=== PATIENT | female | born 1940 | race Caucasian/White ===

== ENCOUNTER 2016-08-31 08:03 | Day surgery (SDC) | payer OTHER ==
[~2016-08-31] VITALS: Ht 172.7 cm; Wt 87.3 kg
[~2016-08-31 08:03] MED LIST: AMLO5 PO; ASPI81 PO; BENA25TA8 PO; LEVO.125 PO; LOVA20TA PO; METO25 PO; SERT-132 PO
[2016-08-31] MEDS ORDERED: ASPIRIN 81 MG CHEW TAB ONE (08:36)
[2016-08-31 08:57] VITALS: BP 138/69; PULSE 57; RESP 18; TEMP 98; O2SAT 97
[2016-08-31] MEDS ORDERED: ISOS30TA3 PO (09:11)
[2016-08-31] MEDS ORDERED: ERGO1CAP10 PO (09:11)
[2016-08-31] MEDS ORDERED: METO25TA3 PO (09:11)
[2016-08-31] MEDS ORDERED: AMLO5TAB2 PO (09:11)
[2016-08-31] MEDS ORDERED: ATOR40TA16 PO (09:11)
[2016-08-31] MEDS ORDERED: LEVO75TA3 PO (09:11)
[2016-08-31] MEDS ORDERED: ASPI1TAB69 PO (09:11)
[2016-08-31] MEDS ORDERED: BENA25TA3 PO (09:11)
[2016-08-31] MEDS ORDERED: ALPR0.25 PO (09:11)
[2016-08-31] MEDS ORDERED: SERT-129 PO (09:11)
[2016-08-31 09:31] LABS: AUTOMATED NEUTROPHIL # 2.3 TH/MM3 (1.8-7.7); BASOPHIL % 0.9 % (0.0-2.0); EOSINOPHIL # 0.3 TH/MM3 (0-0.4); EOSINOPHIL % 7.5 % (0.0-4.0); HEMO FLAGS DIFF FINAL; LYMPH % 29.5 % (9.0-44.0); LYMPHOCYTE # 1.3 TH/MM3 (1.0-4.8); MEAN CELL VOLUME 82.8 FL (80.0-100.0); MEAN CORPUSCULAR HEMOGLOBIN 27.5 PG (27.0-34.0); MEAN CORPUSCULAR HGB CONC 33.2 % (32.0-36.0); MONO % 9.8 % (0.0-8.0); NEUT % 52.3 % (16.0-70.0); PLATELET COUNT 207 TH/MM3 (150-450); RED CELL DISTRIBUTION WIDTH 15.2 % (11.6-17.2); WHITE BLOOD COUNT 4.4 TH/MM3 (4.0-11.0)
[2016-08-31 09:36] LABS: PROTHROMBIN TIME - PATIENT 11.1 SEC (9.8-11.6)
[2016-08-31] MEDS ORDERED: NS 1000P @30 MLS/HR (KVO) IV SCH (09:45)
[2016-08-31 09:52] LABS: POTASSIUM 3.9 MEQ/L (3.5-5.1)
--- NOTE | 2016-08-31 10:00 | EKG ---
Date Performed: 08/31/2016 Time Performed: 09:00:34 PTAGE: 76 years EKG: Sinus bradycardia with 1st degree A-V block Possible left anterior fascicular block Abnorma l ECG NO SIGNIFICANT CHANGE FROM PRIOR ELECTROCARDIOGRAM. PREVIOUS TRACING : 12/03/2014 17.28 DOCTOR: Mannie Guillory Interpretating Date/Time 08/31/2016 10:00:33
[2016-08-31] MEDS ORDERED: MIDAZOLAM HCL 2 MG/2 ML VIAL ONE (10:12)
[2016-08-31] MEDS ORDERED: HEPARIN-NS/PF INJ 500 ML ONE (10:12)
[2016-08-31] MEDS ORDERED: NITROGLYCERIN INJ 5 ML ONE (10:19)
[2016-08-31] MEDS ORDERED: VERAPAMIL HCL 5 MG/2 ML VIAL ONE (10:19)
[2016-08-31] MEDS ORDERED: HEPARIN SODIUM - IV 10,000 UNITS/10 ML VIAL ONE (10:19)
[2016-08-31] MEDS ORDERED: hydrALAZINE HCL 20 MG/ML VIAL ONE (11:05)
[2016-08-31] MEDS ORDERED: IOHEXOL 350 MG/ML 100 ML BTL (for Cath Lab) OTHER ONE (11:15)
[2016-08-31] MEDS ORDERED: SODIUM CHLORIDE 0.9% FLUSH 5 ML FLUSH IVF PRN (11:45)
[2016-08-31] MEDS ORDERED: ACETAMINOPHEN 325 MG TAB PO ONE (11:45)
[2016-08-31] MEDS ORDERED: MISC INFORMATION XX ONE (11:45)
--- NOTE | 2016-08-31 13:42 | MA ---
cc: JOSE RENO DO DATE: August 31, 2016 PROCEDURE Left heart catheterization, coronary angiography, angiography of bypass grafts. PREPROCEDURE DIAGNOSIS Chest pain, Bent anginal score of 3, abnormal stress test. POSTPROCEDURE DIAGNOSIS Coronary artery disease with a history of coronary artery bypass grafting. MEDICATIONS USED Versed 1/2 mg, fentanyl 25 mcg, verapamil 2.5 mg, Nitro 200 mcg, heparin 3500 units. ESTIMATED BLOOD LOSS 10 ccs. CONTRAST USED 75 ccs. FLUOROSCOPY 13.7 minutes. PROCEDURAL SUMMARY Jessie Duval is a pleasant 76-year-old female who has been noting chest pain and shortness of breath with mild exertion. Her complaint appears to be more shortness of breath than anything but due to the chest pain and shortness of breath she underwent nuclear stress testing which showed inferolateral area of ischemia. This was felt to be an intermediate cardiovascular risk. Due to this she was scheduled for cardiac catheterization. She understood the risks, benefits and alternatives before the case and signed consent as such. PROCEDURE She was brought back to the cardiac catheterization lab and prepped in the usual sterile fashion. Her left radial artery was accessed using a modified Seldinger technique and placement of a Terumo 5/6 Sinhala slender sheath. A JR-4 was advanced over a J-wire to the left subclavian artery. Selective angiography of the HEDRICK artery shows a patent HEDRICK with no significant disease touching down to the mid LAD and supplying both the mid LAD and diagonal with no significant disease throughout. A J-wire was then advanced through the JR-4 and this was taken down into the ascending root of the aorta. The JR-4 was then used for selective angiography of the lytton right coronary artery which shows diffuse 60% disease throughout with a 70% lesion distally and competitive flow distally. The JR-4 was then used to engage the SVG to PDA but it was felt that it was not well engaged and a multipurpose would most likely be better. The JR-4 was then used to engage an SVG to OM-1, OM-2 which shows a patent vein graft with good touchdown and no significant disease in the obtuse marginals. The JR-4 was then exchanged for a multipurpose and this was used to engage the SVG to the PDA. SVG showed no significant disease with good touchdown to the PDA and this retrogradely fills the RCA. The multipurpose was then removed and exchanged for a JL-4. Selective coronary angiography of the left coronary system shows a left main with minimal disease. Proximal LAD has 50% lesions and then 100% at the first septal desk top publisher. The left circumflex appears to have 100% after the first obtuse marginal with the first obtuse marginal showing competitive flow distally. The JL-4 was then removed over a J-wire. No aortovein graft bypasses are noted to the diagonal and it was felt that the diagonal was filled via the HERDICK to LAD and this may represent an error in the documentation of the patient's bypass surgery. Two markers were noted on the aorta coinciding with the SVG to PDA and SVG to first and second obtuse marginals. An angled pigtail was then used to cross the aortic valve and measurement of the left ventricular pressures with LVEDP of 26. The pigtail was then pulled back across the aortic valve showing no significant gradient of aortic stenosis. The pigtail was then removed over a J-wire. The left radial sheath was then removed and placement of a TR band with 10 ccs of air. The patient left the catheterization lab stable. IMPRESSION 1. Coronary artery disease with history of coronary artery bypass grafting including a HEDRICK to LAD and diagonal, SVG to OM1 OM2, SVG to PDA, which are all patent at this time. 2. Elevated LVEDP at 25. 3. Noted hypertension with an aortic pressure of 190/90 in the cardiac catheterization lab. RECOMMENDATIONS 1. Jessie appears to have no significant obstructive coronary artery disease at this time as all bypass grafts are open. 2. She was noted to have an elevated LVEDP along with hypertensive in the cardiac catheterization lab. This may be part of the cause of her chest pain and shortness of breath. Postprocedure her blood pressure was noted to be 147/78. If she notices anymore elevation of her blood pressure at home or while in the office, consideration could be made for increasing her Norvasc. 3. She will follow up with Dr. Guillory in the next 3-4 weeks. Thank you for allowing me to see Jessie Duval, if there are any questions please do not hesitate to call. Jose Reno DO VGP/TLL /12:36 PM /1:14 PM
[2016-08-31] MEDS ORDERED: SODIUM CHLORIDE 0.9% FLUSH 5 ML FLUSH IVF SCH (21:00)
== END 2016-08-31 16:51 | disposition home or self-care (01) ==
LOC: HDOC 08:03 → HDIC 08:05 → HDOC 16:51
PROVIDERS: ATTEND Nuclear Medicine Nuclear Cardiology
DX: I25.10 Atherosclerotic heart disease of native coronary artery without angina pectoris (principal); I10 Essential (primary) hypertension; E66.9 Obesity, unspecified; E78.5 Hyperlipidemia, unspecified; Z95.1 Presence of aortocoronary bypass graft
CPT/HCPCS: 80048; 85025; 85610; 85730; 93005; 93454; C1769; C1893; J0360; J1644; J2250; J3010; Q9967

== ENCOUNTER 2017-08-28 14:25 | Inpatient (IN) | payer OTHER, MEDICARE ==
[~2017-08-28] VITALS: Ht 175.3 cm; Wt 85.0 kg
[~2017-08-28 14:25] MED LIST changes: +ALPR0.25 PO; -AMLO5 PO; +AMLO5TAB2 PO; +ASPI1TAB69 PO; -ASPI81 PO; +ATOR40TA16 PO; +BENA25TA3 PO; -BENA25TA8 PO; +ERGO1CAP10 PO; +ISOS30TA3 PO; -LEVO.125 PO; +LEVO75TA3 PO; -LOVA20TA PO; -METO25 PO; +METO25TA3 PO; +SERT-129 PO; -SERT-132 PO
[2017-08-28] MEDS ORDERED: IOHEXOL 350 MG/ML 10 ML VIAL (for RAD DIAG) IVCONTRAST ONE (14:26)
[2017-08-28 14:28] VITALS: BP 157/103; PULSE 64; RESP 22; TEMP 98.7; O2SAT 97
[2017-08-28] MEDS ORDERED: ASPI81CH6 CHEW (15:51)
[2017-08-28] MEDS ORDERED: MORPHINE SULFATE 2 MG/ML INJ IV PUSH ONE ×2 (16:15→21:15)
--- NOTE | 2017-08-28 16:40 | RADRPT ---
EXAM DATE/TIME: 08/28/2017 16:21 [facility] COMPARISON: No previous studies available for comparison. INDICATIONS : Chest pain after fall. MEDICAL HISTORY : Hypertension. Hypercholesterolemia. SURGICAL HISTORY : CABG. Cholecystectomy. ENCOUNTER: Initial ACUITY: 1 day PAIN SCORE: 6/10 LOCATION: Bilateral chest FINDINGS: A single view of the chest demonstrates the lungs to be symmetrically aerated without evidence of mas s, infiltrate or effusion. The cardiomediastinal contours are unremarkable. Osseous structures are intact. Median sternotomy wires are noted. CONCLUSION: No acute disease. Juan M Roy MD on August 28, 2017 at 16:38 Board Certified Radiologist. This report was verified electronically.
--- NOTE | 2017-08-28 16:41 | PD ---
HPI Chief Complaint: Fall Time Seen by Provider: 16:08 Travel History International Travel<30 days: No Contact w/Intl Traveler<30days: No Traveled to known affect area: No History of Present Illness HPI This is a 77-year-old female who presents to the emergency department having had a mechanical fall earlier this morning where she landed on her back. She's not sure if she hit her head. She is reporting rib pain on both sides, constant , severe, worse with breathing associated with some pain in her jaw. She takes a baby aspirin every day. She says that initially after the fall she thought she was okay but she's gotten increasingly sore and painful ever since. PFSH Past Medical History Arthritis: No Autoimmune Disease: No Blood Disorders: No Heart Rhythm Problems: No Cancer: No Cardiac Catheterization: Yes Cardiovascular Problems: Yes (CABG, HTN) High Cholesterol: Yes Chemotherapy: No Chest Pain: Yes Congestive Heart Failure: No Cerebrovascular Accident: No Coronary Artery Disease: Yes Diabetes: No Diminished Hearing: No Gastrointestinal Disorders: No GERD: No Glaucoma: No Hepatitis: No Hiatal Hernia: No Hypertension: Yes Kidney Stones: No Musculoskeletal: Yes Psychiatric: No Myocardial Infarction: No Radiation Therapy: No Renal Failure: No Seizures: Yes Thyroid Disease: Yes Triglycerides - High: Yes Ulcer: No Menopausal: Yes : 5 Para: 4 Miscarriage: 1 Tubal Ligation: Yes Past Surgical History Abdominal Surgery: Yes (BARIATRIC SX 2011) AICD: No Section: Yes (X 1) Cholecystectomy: Yes Coronary Artery Bypass Graft: Yes (5 WAY - 94% BLOCKAGE 2010) Genitourinary Surgery: No Pacemaker: No Social History Alcohol Use: Yes (OCCASIONALLY) Tobacco Use: No Substance Use: No Allergies-Medications (Allergen,Severity, Reaction): Coded Allergies: No Known Allergies (Verified Adverse Reaction, Unknown, 08/28/17) Reported Meds & Prescriptions Reported Meds & Active Scripts Active Reported Aspirin Low Dose (Aspirin) 81 Mg Chew 81 Mg CHEW DAILY Sertraline (Sertraline HCl) 100 Mg Tab 100 Mg PO DAILY Metoprolol Tartrate 25 Mg Tab 25 Mg PO BID Levothyroxine (Levothyroxine Sodium) 75 Mcg Tab 75 Mcg PO DAILY Isosorbide Mononitrate ER (Isosorbide Mononitrate) 30 Mg Milagros 30 Mg PO DAILY Atorvastatin (Atorvastatin Calcium) 40 Mg Tab 40 Mg PO HS Amlodipine (Amlodipine Besylate) 5 Mg Tab 5 Mg PO DAILY Alprazolam 0.25 Mg Tab 0.25 Mg PO Q8H PRN Review of Systems Except as stated in HPI: all other systems reviewed are Neg Physical Exam Narrative GENERAL:Well appearing, no acute distress SKIN: Focused skin assessment warm and dry. HEAD: Atraumatic. Normocephalic. EYES: Pupils equal and round. No injection or drainage. ENT: Moist mucous membranes NECK: Midline cervical spine tenderness. CARDIOVASCULAR: Regular rate and rhythm. No murmur appreciated. RESPIRATORY: Tachypnea with bilateral clear breath sounds. GASTROINTESTINAL: Abdomen soft, diffusely tender to palpation in the upper abdomen with no rebound or guarding. MUSCULOSKELETAL: No obvious deformities. NEUROLOGICAL: Awake and alert. No obvious cranial nerve deficits. Moving all extremities. PSYCHIATRIC: Appropriate mood and affect; insight and judgment normal. Data Data Last Documented VS Vital Signs Date Time Temp Pulse Resp B/P (MAP) Pulse Ox O2 Delivery O2 Flow Rate FiO2 08/28/17 15:47 21 Room Air 08/28/17 14:28 98.7 64 157/103 (121) 97 Orders Orders Complete Blood Count With Diff (08/28/17 16:15) Basic Metabolic Panel (Bmp) (08/28/17 16:15) Ct Brain W/O Iv Contrast(Rout) (08/28/17 ) Ct Cerv Spine W/O Contrast (08/28/17 ) Ct Abd/Pel W Iv Contrast(Rout) (08/28/17 ) Ct Thorax/ Chest W Iv Contrast (08/28/17 ) Chest, Single Ap (08/28/17 ) Morphine Inj (Morphine Inj) (08/28/17 16:15) Apply Cervical Collar (08/28/17 16:18) MDM Medical Decision Making Medical Screen Exam Complete: Yes Emergency Medical Condition: Yes Differential Diagnosis Pneumothorax, rib fracture, pulmonary contusion, liver laceration, splenic laceration, intracranial hemorrhage Narrative Course This is a 77-year-old female who presents to the emergency department having had a mechanical fall from standing earlier today. She does take a baby aspirin every day. She has tenderness diffusely on exam and she is tachypneic. I suspect there may be an anxiety component to her presentation. She was given a dose of morphine and CT scans will be obtained given the patient's age and exam findings. Disposition will be made by oncoming provider. If CTs are reassuring at think the patient can be discharged home. Erin Gale MD Aug 28, 2017 16:41
[2017-08-28 17:01] LABS: AUTOMATED NEUTROPHIL # 5.3 TH/MM3 (1.8-7.7); BASOPHIL % 0.3 % (0.0-2.0); EOSINOPHIL # 0.3 TH/MM3 (0-0.4); EOSINOPHIL % 3.1 % (0.0-4.0); HEMATOCRIT 36.5 % (35.0-46.0); HEMOGLOBIN 12.6 GM/DL (11.6-15.3); LYMPH % 24.3 % (9.0-44.0); MEAN CELL VOLUME 86.2 FL (80.0-100.0); MEAN CORPUSCULAR HEMOGLOBIN 29.7 PG (27.0-34.0); MEAN CORPUSCULAR HGB CONC 34.5 % (32.0-36.0); MEAN PLATELET VOLUME 7.9 FL (7.0-11.0); MONO % 7.8 % (0.0-8.0); MONOCYTE # 0.6 TH/MM3 (0-0.9); NEUT % 64.5 % (16.0-70.0); PLATELET COUNT 245 TH/MM3 (150-450); RED BLOOD COUNT 4.23 MIL/MM3 (4.00-5.30); WHITE BLOOD COUNT 8.1 TH/MM3 (4.0-11.0)
[2017-08-28 17:13] LABS: BICARBONATE 26.8 MEQ/L (21.0-32.0); CALCIUM 8.8 MG/DL (8.5-10.1); CREATININE 0.94 MG/DL (0.50-1.00)
--- NOTE | 2017-08-28 18:13 | RADRPT ---
EXAM DATE/TIME: 08/28/2017 17:46 [facility] COMPARISON: No previous studies available for comparison. INDICATIONS : Fall today RADIATION DOSE: 56.35 CTDIvol (mGy) MEDICAL HISTORY : Seizures. Cardiovascular disease Hypertension.Thyroid disease SURGICAL HISTORY : Cholecystectomy. Tubal ligation.CABG ENCOUNTER: Initial ACUITY: 1 day PAIN SCALE: 8/10 LOCATION: cranial TECHNIQUE: Multiple contiguous axial images were obtained of the head. Using automated exposure control and adj ustment of the mA and/or kV according to patient size, radiation dose was kept as low as reasonably a chievable to obtain optimal diagnostic quality images. DICOM format image data is available electro nically for review and comparison. FINDINGS: CEREBRUM: Area of increased density in the right basal ganglia likely calcifications measure approximately 1 cm . Low attenuation throughout the white matter. The ventricles are normal for age. No evidence of mid line shift, mass lesion, hemorrhage or acute infarction. No extra-axial fluid collections are seen. POSTERIOR FOSSA: The cerebellum and brainstem are intact. The 4th ventricle is midline. The cerebellopontine angle i s unremarkable. EXTRACRANIAL: The visualized portion of the orbits is intact. SKULL: The calvaria is intact. No evidence of skull fracture. CONCLUSION: 1. Area of increased density in the right basal ganglia likely calcifications versus less likely chad chial hemorrhage. 2. Nonspecific white matter changes. Je Nair MD on August 28, 2017 at 18:10 Board Certified Radiologist. This report was verified electronically.
--- NOTE | 2017-08-28 18:26 | RADRPT ---
EXAM DATE/TIME: 08/28/2017 17:48 [facility] COMPARISON: No previous studies available for comparison. INDICATIONS : Fall today back pain RADIATION DOSE: 23.34 CTDIvol (mGy) MEDICAL HISTORY : Cardiovascular disease. Seizures. Hypertension.Thyroid disease SURGICAL HISTORY : Cholecystectomy. CABGTubal ligation. ENCOUNTER: Initial ACUITY: 1 day PAIN SCALE: 8/10 LOCATION: neck TECHNIQUE: Volumetric scanning of the cervical spine was performed. Multiplanar reconstructions in the sagittal, coronal and oblique axial planes were performed. Using automated exposure control and adjustment o f the mA and/or kV according to patient size, radiation dose was kept as low as reasonably achievable to obtain optimal diagnostic quality images. DICOM format image data is available electronically f or review and comparison. FINDINGS: VERTEBRAE: Normal vertebral body height. Advanced multilevel degenerative changes greatest from C4-C7. Anterior endplate osteophytes at these levels are also noted. ALIGNMENT: Minimal anterolisthesis C3 on C4. C2-C3: Tiny central protrusion without canal stenosis. The neural foramina are bilaterally patent. C3-C4: The bony spinal canal is normal in size. No evidence of disc bulge or herniation. The neural forami na are bilaterally patent. C4-C5: Posterior disc osteophyte complex without canal stenosis. The neural foramina are bilaterally patent . C5-C6: Posterior disc osteophyte complex without canal stenosis. The neural foramina are bilaterally gonzalez nt. C6-C7: The bony spinal canal is normal in size. No evidence of disc bulge or herniation. The neural forami na are bilaterally patent. C7-T1: The bony spinal canal is normal in size. No evidence of disc bulge or herniation. The neural forami na are bilaterally patent. CONCLUSION: 1. Minimal anterolisthesis C3 on C4. 2. No fracture. Je Nair MD on August 28, 2017 at 18:19 Board Certified Radiologist. This report was verified electronically.
--- NOTE | 2017-08-28 18:59 | RADRPT ---
EXAM DATE/TIME: 08/28/2017 17:51 [facility] COMPARISON: No previous studies available for comparison. INDICATIONS : Fall today ,rib pain. IV CONTRAST: 80 cc Omnipaque 350 (iohexol) IV ; Cumulative dose for multiple exams. RADIATION DOSE: 5.47 CTDIvol (mGy) ; Combined studies - Thorax/Abdomen/Pelvis MEDICAL HISTORY : Cardiovascular disease. Seizures. Hypertension.Thyroid disease SURGICAL HISTORY : CABG Cholecystectomy.Tubal ligation. ENCOUNTER: Initial ACUITY: 1 day PAIN SCALE: 8/10 LOCATION: chest TECHNIQUE: Volumetric scanning of the chest was performed. Using automated exposure control and adjustment of t he mA and/or kV according to patient size, radiation dose was kept as low as reasonably achievable to obtain optimal diagnostic quality images. DICOM format image data is available electronically for review and comparison. Follow-up recommendations for detected pulmonary nodules are based at a minimum on nodule size and pa tient risk factors according to Fleischner Society Guidelines. FINDINGS: LUNGS: There is no consolidation or pneumothorax. No concerning pulmonary nodule is visualized. PLEURA: There is no pleural thickening or pleural effusion. MEDIASTINUM: The heart and great vessels demonstrate no acute abnormality. There is no mediastinal or hilar lymph adenopathy. Previous median sternotomy and bypass. AXILLAE: Within normal limits. No lymphadenopathy. SKELETAL: Degenerative changes thoracic spine. MISCELLANEOUS: The visualized upper abdominal organs demonstrate no acute abnormality. Small hiatal hernia and previ ous gastric bypass. Cholecystectomy. CONCLUSION: 1. No acute thoracic process. Je Nair MD on August 28, 2017 at 18:53 Board Certified Radiologist. This report was verified electronically.
--- NOTE | 2017-08-28 19:07 | RADRPT ---
EXAM DATE/TIME: 08/28/2017 17:51 [facility] COMPARISON: No previous studies available for comparison. INDICATIONS : Fall today,back pain,hip and rib pain. IV CONTRAST: 80 cc Omnipaque 350 (iohexol) IV ; Cumulative dose for multiple exams. ORAL CONTRAST: No oral contrast ingested. RADIATION DOSE: 5.47 CTDIvol (mGy) ; Combined studies - Thorax/Abdomen/Pelvis MEDICAL HISTORY : Hypertension. Cardiovascular disease Seizures.Thyroid disease SURGICAL HISTORY : Cholecystectomy. Tubal ligation.CABG ENCOUNTER: Initial ACUITY: 1 day PAIN SCALE: 8/10 LOCATION: Abdomen TECHNIQUE: Volumetric scanning of the abdomen and pelvis was performed. Using automated exposure control and ad justment of the mA and/or kV according to patient size, radiation dose was kept as low as reasonably achievable to obtain optimal diagnostic quality images. DICOM format image data is available electro nically for review and comparison. FINDINGS: LOWER LUNGS: The visualized lower lungs are clear. LIVER: Homogeneous density without lesion. There is no dilation of the biliary tree. Cholecystectomy. SPLEEN: Normal size without lesion. PANCREAS: Within normal limits. KIDNEYS: Normal in size and shape. There is no mass, stone or hydronephrosis. ADRENAL GLANDS: Within normal limits. VASCULAR: There is no aortic aneurysm. Extensive atherosclerotic changes. BOWEL/MESENTERY: Gastric bypass. Small hiatal hernia.. There is no free intraperitoneal air or fluid. ABDOMINAL WALL: Within normal limits. RETROPERITONEUM: There is no lymphadenopathy. BLADDER: No wall thickening or mass. REPRODUCTIVE: Within normal limits. INGUINAL: There is no lymphadenopathy or hernia. MUSCULOSKELETAL: Diffuse degenerative changes. Mild superior endplate compression fracture of L1 of indeterminate age. CONCLUSION: 1. Mild superior endplate compression fracture at L1 of indeterminate age. 2. No abdominal visceral injury. 3. Status post cholecystectomy. Je Nair MD on August 28, 2017 at 19:02 Board Certified Radiologist. This report was verified electronically.
[2017-08-28] MEDS ORDERED: MORPHINE SULFATE 4 MG/ML INJ IV PUSH ONE (21:15)
[2017-08-28] MEDS ORDERED: ACETAMINOPHEN 325 MG TAB PO ONE (21:15)
[2017-08-28] MEDS ORDERED: SODIUM CHLOR 0.9% 1000 ML INJ 1,000 ML IV SCH (23:04)
[2017-08-28] MEDS ORDERED: ACETAMINOPHEN 325 MG TAB PO PRN (23:15)
[2017-08-28] MEDS ORDERED: ONDANSETRON HCL 4 MG/2 ML VIAL IVP PRN (23:15)
[2017-08-28] MEDS ORDERED: BISACODYL 10 MG SUPP RECTAL PRN (23:15)
[2017-08-28] MEDS ORDERED: SENNOSIDES 8.6 MG TAB PO PRN (23:15)
[2017-08-28] MEDS ORDERED: MAGNESIUM HYDROXIDE SUSP 30 ML CUP PO PRN (23:15)
[2017-08-28] MEDS ORDERED: SODIUM CHLORIDE 0.9% FLUSH 10 ML FLUSH IV FLUSH PRN (23:15)
[2017-08-28] MEDS ORDERED: LACTULOSE SYRUP 20 GM/30 ML CUP PO PRN (23:15)
[2017-08-28] MEDS ORDERED: NALOXONE HCL 0.4 MG/ML AMP IV PUSH PRN (23:15)
--- NOTE | 2017-08-28 23:36 | PD.CONS ---
History of Present Illness Service Neurosurgery Consult Requested By Emergency room Reason for Consult L1 fracture Primary Care Physician Evens Lamas M.D. Diagnoses: History of Present Illness 77-year-old female presented to the emergency room this evening after a fall this morning when she tripped and fell, landing on her back. Uncertain injury to the head. No seizure activity nausea vomiting or mental status changes reported. Positive bilateral rib pain. No pain, weakness or numbness in the extremities reported Review of Systems Constitutional: DENIES: Diaphoretic episodes, Fever Eyes: COMPLAINS OF: Blurred vision, DENIES: Diplopia Ears, nose, mouth, throat: DENIES: Hearing loss, Vertigo Respiratory: DENIES: Shortness of breath Cardiovascular: DENIES: Chest pain, Palpitations Gastrointestinal: DENIES: Abdominal pain, Nausea Musculoskeletal: COMPLAINS OF: Joint pain, Muscle aches, Back pain, Neck pain Hematologic/lymphatic: DENIES: Bruising Neurologic: COMPLAINS OF: Headache, DENIES: Abnormal gait Psychiatric: DENIES: Confusion Past Family Social History Allergies: Coded Allergies: No Known Allergies (Verified Allergy, Unknown, 08/28/17) Past Medical History Coronary artery disease Hypertension Seizure disorder Hypothyroidism Hyperlipidemia Past Surgical History CABG Cardiac catheter Bariatric surgery Cholecystectomy Reported Medications Reported Meds & Active Scripts Active Reported Aspirin Low Dose (Aspirin) 81 Mg Chew 81 Mg CHEW DAILY Sertraline (Sertraline HCl) 100 Mg Tab 100 Mg PO DAILY Metoprolol Tartrate 25 Mg Tab 25 Mg PO BID Levothyroxine (Levothyroxine Sodium) 75 Mcg Tab 75 Mcg PO DAILY Isosorbide Mononitrate ER (Isosorbide Mononitrate) 30 Mg Milagros 30 Mg PO DAILY Atorvastatin (Atorvastatin Calcium) 40 Mg Tab 40 Mg PO HS Amlodipine (Amlodipine Besylate) 5 Mg Tab 5 Mg PO DAILY Alprazolam 0.25 Mg Tab 0.25 Mg PO Q8H PRN Family History Negative cardiac disease diabetes cancer Social History Occasional alcohol Does not smoke cigarettes Physical Exam Vital Signs Vital Signs Date Time Temp Pulse Resp B/P (MAP) Pulse Ox O2 Delivery O2 Flow Rate FiO2 08/28/17 15:47 21 Room Air 08/28/17 14:28 98.7 64 22 157/103 (121) 97 Physical Exam GENERAL: This is a well-nourished, well-developed patient, no apparent distress. SKIN: No abrasions, contusion, rash noted. Skin warm and dry. HEAD: Atraumatic. Normocephalic. No temporal or scalp tenderness. EYES: Sclerae are clear and nonicteric ENT: No facial edema or ecchymosis. No periorbital edema. No CSF otorrhea or rhinorrhea. No palpable facial fracture or deformity. NECK: Trachea midline. No cervical spine tenderness. CARDIOVASCULAR: Regular rate and rhythm without murmurs, gallops, or rubs. RESPIRATORY: Clear to auscultation. Breath sounds equal bilaterally. No wheezes , rales, or rhonchi. GASTROINTESTINAL: Abdomen soft, non-tender, nondistended. No hepato-splenomegaly , or palpable masses. No guarding. MUSCULOSKELETAL: Extremities without cyanosis, or edema. No joint tenderness, or edema noted. No calf tenderness. Dorsalis pedis pulses 2+ bilateral NEUROLOGICAL: Awake and alert Oriented X 3 Speech is clear Conversant and appropriate Follow simple commands well Answers questions appropriately Reasonable judgment and insight Recent and remote memory are intact No evidence of anxiety or depression Pupils are equal and reactive to accommodation. Extra-ocular movements, visual seals to confrontation, facial sensorimotor, tongue, palate, sternocleidomastoid testing, hearing to finger rub testing, and bilateral shoulder shrug are all intact. Sensation is intact to light touch in all extremities Strength normal major flexion and extension groups all extremities Esperanza's absent bilaterally No ankle clonus Plantar responses absent bilateral Fine motor movements intact upper extremities Laboratory Laboratory Tests Test 08/28/17 16:35 White Blood Count 8.1 Red Blood Count 4.23 Hemoglobin 12.6 Hematocrit 36.5 Mean Corpuscular Volume 86.2 Mean Corpuscular Hemoglobin 29.7 Mean Corpuscular Hemoglobin Concent 34.5 Red Cell Distribution Width 14.0 Platelet Count 245 Mean Platelet Volume 7.9 Neutrophils (%) (Auto) 64.5 Lymphocytes (%) (Auto) 24.3 Monocytes (%) (Auto) 7.8 Eosinophils (%) (Auto) 3.1 Basophils (%) (Auto) 0.3 Neutrophils # (Auto) 5.3 Lymphocytes # (Auto) 2.0 Monocytes # (Auto) 0.6 Eosinophils # (Auto) 0.3 Basophils # (Auto) 0.0 CBC Comment DIFF FINAL Differential Comment Blood Urea Nitrogen 15 Creatinine 0.94 Random Glucose 89 Calcium Level 8.8 Sodium Level 138 Potassium Level 3.1 Chloride Level 105 Carbon Dioxide Level 26.8 Anion Gap 6 Estimat Glomerular Filtration Rate 58 Result Diagram: 08/28/17 1635 08/28/17 1635 Imaging -2017 CT scan of the head, cervical spine, as well as bone windows of the spinal CT of the chest abdomen and pelvis images are reviewed by the undersigned. Probable mild right basal ganglia calcification. Minimal C3 4 anterolisthesis appears chronic and degenerative Mild L1 superior endplate fracture. There appears to be sclerotic changes along the border, probable chronic fracture. Head CT 08/28/17 0000 Signed Impressions: Service Date/Time: Monday, August 28, 2017 17:46 - CONCLUSION: 1. Area of increased density in the right basal ganglia likely calcifications versus less likely petechial hemorrhage. 2. Nonspecific white matter changes. Je Nair MD Chest X-Ray 08/28/17 0000 Signed Impressions: Service Date/Time: Monday, August 28, 2017 16:21 - CONCLUSION: No acute disease. Juan M Roy MD Chest CT 08/28/17 0000 Signed Impressions: Service Date/Time: Monday, August 28, 2017 17:51 - CONCLUSION: 1. No acute thoracic process. Je Nair MD Cervical Spine CT 08/28/17 0000 Signed Impressions: Service Date/Time: Monday, August 28, 2017 17:48 - CONCLUSION: 1. Minimal anterolisthesis C3 on C4. 2. No fracture. Je Nair MD Abdomen/Pelvis CT 08/28/17 0000 Signed Impressions: Service Date/Time: Monday, August 28, 2017 17:51 - CONCLUSION: 1. Mild superior endplate compression fracture at L1 of indeterminate age. 2. No abdominal visceral injury. 3. Status post cholecystectomy. eJ Nair MD Assessment and Plan Assessment and Plan Impression: 1. L1 superior endplate fracture. There appears to be sclerotic changes along the lateral margins, probable chronic fracture. 2. Increased attenuation of the basal ganglia-probable chronic basal ganglia calcification. 3. C3-4 anterolisthesis which appears degenerative and chronic. Recommendations: Continue conservative treatment for the above-noted problems. She may mobilize out of bed without a brace, but should be cautious regarding bending or lifting. Follow-up x-ray of the lumbar spine in 10-14 days is recommended Follow-up CT scan head in the morning, 08/29/2017. Non-chemical DVT prophylaxis pending follow-up CT scan. She may mobilize out of bed with physical therapy with assistance. Tamir Brunner MD Aug 28, 2017 23:36
[2017-08-29 00:40] VITALS: BP 179/84; PULSE 63; RESP 18; TEMP 98.4; O2SAT 98
--- NOTE | 2017-08-29 00:55 | PD ---
Physical Exam Narrative Patient signed out to me by Dr. Gale. Please see her documentation for complete details. Briefly, patient is a 77-year-old female who comes in after a fall from standing. She complains of pain all over. She is moving all extremities. She has no neurologic abnormalities. Data Data Last Documented VS Vital Signs Date Time Temp Pulse Resp B/P (MAP) Pulse Ox O2 Delivery O2 Flow Rate FiO2 08/28/17 15:47 21 Room Air 08/28/17 14:28 98.7 64 157/103 (121) 97 Orders Orders Complete Blood Count With Diff (08/28/17 16:15) Basic Metabolic Panel (Bmp) (08/28/17 16:15) Ct Brain W/O Iv Contrast(Rout) (08/28/17 ) Ct Cerv Spine W/O Contrast (08/28/17 ) Ct Abd/Pel W Iv Contrast(Rout) (08/28/17 ) Ct Thorax/ Chest W Iv Contrast (08/28/17 ) Chest, Single Ap (08/28/17 ) Morphine Inj (Morphine Inj) (08/28/17 16:15) Apply Cervical Collar (08/28/17 16:18) Iohexol 350 Inj (Omnipaque 350 Inj) (08/28/17 14:26) Acetaminophen (Tylenol) (08/28/17 21:15) Morphine Inj (Morphine Inj) (08/28/17 21:15) Morphine Inj (Morphine Inj) (08/28/17 21:15) Admit Order (Ed Use Only) (08/28/17 ) Labs Laboratory Tests Test 08/28/17 16:35 White Blood Count 8.1 TH/MM3 Red Blood Count 4.23 MIL/MM3 Hemoglobin 12.6 GM/DL Hematocrit 36.5 % Mean Corpuscular Volume 86.2 FL Mean Corpuscular Hemoglobin 29.7 PG Mean Corpuscular Hemoglobin Concent 34.5 % Red Cell Distribution Width 14.0 % Platelet Count 245 TH/MM3 Mean Platelet Volume 7.9 FL Neutrophils (%) (Auto) 64.5 % Lymphocytes (%) (Auto) 24.3 % Monocytes (%) (Auto) 7.8 % Eosinophils (%) (Auto) 3.1 % Basophils (%) (Auto) 0.3 % Neutrophils # (Auto) 5.3 TH/MM3 Lymphocytes # (Auto) 2.0 TH/MM3 Monocytes # (Auto) 0.6 TH/MM3 Eosinophils # (Auto) 0.3 TH/MM3 Basophils # (Auto) 0.0 TH/MM3 CBC Comment DIFF FINAL Differential Comment Blood Urea Nitrogen 15 MG/DL Creatinine 0.94 MG/DL Random Glucose 89 MG/DL Calcium Level 8.8 MG/DL Sodium Level 138 MEQ/L Potassium Level 3.1 MEQ/L Chloride Level 105 MEQ/L Carbon Dioxide Level 26.8 MEQ/L Anion Gap 6 MEQ/L Estimat Glomerular Filtration Rate 58 ML/MIN MDM Supervised Visit with WINNIE: No Narrative Course CT head shows likely calcifications, but possible petechial hemorrhage. CT of the lumbar spine shows an L1 fracture of indeterminate age. With Dr. Nair who recommends repeat CT in the morning to rule out bleed. Patient will be placed in observation for further management. Given pain medicine. Diagnosis Primary Impression: Head injury Qualified Codes: S09.90XA - Unspecified injury of head, initial encounter Additional Impression: Fall Qualified Codes: W19.XXXA - Unspecified fall, initial encounter Admitting Information Admitting Physician Requests: Observation Mariela Abad MD Aug 29, 2017 00:55
--- NOTE | 2017-08-29 01:25 | HHI.HP ---
[facility] Service [facility] Primary Care Physician Evens Lamas M.D. Admission Diagnosis Head Injury Diagnoses: Travel History International Travel<30 Days: No Contact w/Intl Traveler <30 Da: No Traveled to Known Affected Are: No History of Present Illness 87-year-old female with a past medical history significant for CAD status post CABG, hypertension, hyperlipidemia, depression and hypothyroidism presents to the emergency department after suffering a fall. The patient reports she was in a cycle shop when she tripped over a door ledge and fell forward. She hit the ground with such force that she broke her bottom denture. She is unsure if she sustained any loss of consciousness. She currently reports pain all over her whole body including her lower back and her hips. She has had multiple episodes of emesis that began approximately one hour after her fall. Chest x- ray, chest CT and cervical spine CT all without acute process. CT of the abdomen and pelvis significant for a mild superior endplate compression fracture at L1 of indeterminate age. Head CT showed an area of increased density in the right basal ganglia likely calcifications versus petechial hemorrhage. Patient denies headache. Alert and oriented 4. Review of Systems Denies fever or chills Denies blurry vision, otorrhea, rhinorrhea Denies sore throat and cough No chest pain, palpitations, shortness of breath No abdominal pain Denies constipation/diarrhea/nausea/vomiting Positive muscle pain in her bilateral lower extremities, hips and back No rashes Past Family Social History Past Medical History CAD Hypertension Hyperlipidemia Hypothyroidism Depression Past Surgical History CABG 5 in 2013 Cholecystectomy Allergies: Coded Allergies: No Known Allergies (Verified Allergy, Unknown, 08/28/17) Family History Father with CVA Social History Occasional alcohol. Denies tobacco, illicit drugs. Physical Exam Vital Signs Vital Signs Date Time Temp Pulse Resp B/P (MAP) Pulse Ox O2 Delivery O2 Flow Rate FiO2 08/29/17 00:40 98.4 63 18 179/84 (115) 98 Room Air 08/29/17 00:40 08/28/17 15:47 21 Room Air 08/28/17 14:28 98.7 64 22 157/103 (121) 97 Physical Exam GENERAL: female sitting up in bed SKIN: No rashes, ecchymoses or lesions. Cool and dry. HEAD: Atraumatic. Normocephalic. No temporal or scalp tenderness. No areas of ecchymoses or trauma. EYES: Pupils equal round and reactive. Extraocular motions intact. No scleral icterus. No injection or drainage. ENT: Nose without bleeding, purulent drainage or septal hematoma. Throat without erythema, tonsillar hypertrophy or exudate. Uvula midline. Airway patent. NECK: Trachea midline. No JVD or lymphadenopathy. Supple, nontender, no meningeal signs. CARDIOVASCULAR: Regular rate and rhythm without murmurs, gallops, or rubs. RESPIRATORY: Clear to auscultation. Breath sounds equal bilaterally. No wheezes , rales, or rhonchi. GASTROINTESTINAL: Abdomen soft, non-tender, nondistended. No hepato-splenomegaly , or palpable masses. No guarding. MUSCULOSKELETAL: Extremities without clubbing, cyanosis, or edema. No joint tenderness, effusion, or edema noted. No calf tenderness. NEUROLOGICAL: Awake and alert. Cranial nerves II through XII intact. Motor and sensory grossly within normal limits. Five out of 5 muscle strength in all muscle groups. Normal speech. Laboratory Laboratory Tests Test 08/28/17 16:35 White Blood Count 8.1 Red Blood Count 4.23 Hemoglobin 12.6 Hematocrit 36.5 Mean Corpuscular Volume 86.2 Mean Corpuscular Hemoglobin 29.7 Mean Corpuscular Hemoglobin Concent 34.5 Red Cell Distribution Width 14.0 Platelet Count 245 Mean Platelet Volume 7.9 Neutrophils (%) (Auto) 64.5 Lymphocytes (%) (Auto) 24.3 Monocytes (%) (Auto) 7.8 Eosinophils (%) (Auto) 3.1 Basophils (%) (Auto) 0.3 Neutrophils # (Auto) 5.3 Lymphocytes # (Auto) 2.0 Monocytes # (Auto) 0.6 Eosinophils # (Auto) 0.3 Basophils # (Auto) 0.0 CBC Comment DIFF FINAL Differential Comment Blood Urea Nitrogen 15 Creatinine 0.94 Random Glucose 89 Calcium Level 8.8 Sodium Level 138 Potassium Level 3.1 Chloride Level 105 Carbon Dioxide Level 26.8 Anion Gap 6 Estimat Glomerular Filtration Rate 58 Result Diagram: 08/28/17 1635 1/10/145 Caprini VTE Risk Assessment Caprini VTE Risk Assessment: Mod/High Risk (score >= 2) Caprini Risk Assessment Model Point Value = 1 Point Value = 2 Point Value = 3 Point Value = 5 Age 41-60 Minor surgery BMI > 25 kg/m2 Swollen legs Varicose veins or History of unexplained or recurrent spontaneous Oral contraceptives or hormone replacement Sepsis (< 1 month) Serious lung disease, including pneumonia (< 1 month) Abnormal pulmonary function Acute myocardial infarction Congestive heart failure (< 1 month) History of inflammatory bowel disease Medical patient at bed rest Age 61-74 Arthroscopic surgery Major open surgery (> 45 min) Laparoscopic surgery (> 45 min) Malignancy Confined to bed (> 72 hours) Immobilizing plaster cast Central venous access Age >= 75 History of VTE Family history of VTE Factor V Leiden Prothrombin [id number] Lupus anticoagulant Anticardiolipin antibodies Elevated serum homocysteine Heparin-induced thrombocytopenia Other congenital or acquired thrombophilia Stroke (< 1 month) Elective arthroplasty Hip, pelvis, or leg fracture Acute spinal cord injury (< 1 month) Prophylaxis Regimen Total Risk Factor Score Risk Level Prophylaxis Regimen 0-1 Low Early ambulation 2 Moderate Order ONE of the following: *Sequential Compression Device (SCD) *Heparin 5000 units SQ BID 3-4 Higher Order ONE of the following medications: *Heparin 5000 units SQ TID *Enoxaparin/Lovenox 40 mg SQ daily (WT < 150 kg, CrCl > 30 mL/min) *Enoxaparin/Lovenox 30 mg SQ daily (WT < 150 kg, CrCl > 10-29 mL/min) *Enoxaparin/Lovenox 30 mg SQ BID (WT < 150 kg, CrCl > 30 mL/min) AND/OR *Sequential Compression Device (SCD) 5 or more Highest Order ONE of the following medications: *Heparin 5000 units SQ TID (Preferred with Epidurals) *Enoxaparin/Lovenox 40 mg SQ daily (WT < 150 kg, CrCl > 30 mL/min) *Enoxaparin/Lovenox 30 mg SQ daily (WT < 150 kg, CrCl > 10-29 mL/min) *Enoxaparin/Lovenox 30 mg SQ BID (WT < 150 kg, CrCl > 30 mL/min) AND *Sequential Compression Device (SCD) Assessment and Plan Assessment and Plan Assessment/plan: 1. Concern for petechial hemorrhage on head CT Repeat head CT in the a.m. to rule out bleed Monitor neurologic status Neuro checks every 4 hours 2. L1 fracture Age-indeterminate Neurosurgery consulted, recommend conservative treatment. Patient may mobilize out of bed without a brace, restrict bending/lifting. Repeat x-ray of the lumbar spine in 10-14 days. 3. Pain status post fall Morphine when necessary 4. CAD/hypertension/hyperlipidemia Continue home medications 5. Hypothyroidism/depression Continue sertraline and Synthroid 6. Hypokalemia Status post by mouth replacement Follow-up [facility] Heart healthy diet Electrolytes: As above Holding pharmacologic anticoagulation for possible head bleed Amanda Ly MD Aug 29, 2017 01:25
[2017-08-29 01:27] VITALS: BP 178/81; PULSE 66; RESP 18; TEMP 97.9; O2SAT 97
[2017-08-29] MEDS ORDERED: POTASSIUM CHLORIDE 20 MEQ CONTROLLED RELEASE TAB PO ONE (01:30)
[2017-08-29 03:04] VITALS: BP 135/62; PULSE 66; RESP 18; TEMP 97.9; O2SAT 99
[2017-08-29] MEDS: MORPHINE SULFATE 2 MG/ML INJ IV PUSH PRN ×3 (03:31→14:06)
[2017-08-29 04:21] LABS: AUTOMATED NEUTROPHIL # 3.8 TH/MM3 (1.8-7.7); BASOPHIL % 0.5 % (0.0-2.0); EOSINOPHIL # 0.3 TH/MM3 (0-0.4); EOSINOPHIL % 4.4 % (0.0-4.0); HEMATOCRIT 37.9 % (35.0-46.0); LYMPH % 27.5 % (9.0-44.0); LYMPHOCYTE # 1.8 TH/MM3 (1.0-4.8); MEAN CELL VOLUME 86.9 FL (80.0-100.0); MEAN CORPUSCULAR HEMOGLOBIN 29.8 PG (27.0-34.0); MEAN CORPUSCULAR HGB CONC 34.3 % (32.0-36.0); MEAN PLATELET VOLUME 7.7 FL (7.0-11.0); MONO % 8.7 % (0.0-8.0); MONOCYTE # 0.6 TH/MM3 (0-0.9); NEUT % 58.9 % (16.0-70.0); PLATELET COUNT 253 TH/MM3 (150-450); RED BLOOD COUNT 4.36 MIL/MM3 (4.00-5.30); WHITE BLOOD COUNT 6.4 TH/MM3 (4.0-11.0)
[2017-08-29 04:54] LABS: CALCIUM 9.1 MG/DL (8.5-10.1); CREATININE 0.86 MG/DL (0.50-1.00)
[2017-08-29] MEDS: LEVOTHYROXINE SODIUM 75 MCG TAB PO SCH (06:25)
[2017-08-29] MEDS: SODIUM CHLORIDE 0.9% FLUSH 10 ML FLUSH IV FLUSH SCH ×2 (09:00→20:09)
--- NOTE | 2017-08-29 09:10 | HHI.PR ---
Subjective Remarks Follow up on patient closed head injury s/p mechanical fall. CT showing possible petechial hemorrhage. Patient in the process of being transported to CT now. She is very unhappy with the "communication of the hospital" specifically the fact that she's not had anything to eat since 1:00 yesterday and that she had to request her pain medication 5 times. She endorses a severe headache and vision changes in the left eye which is new following the fall. She denies any nausea or vomiting. She denies any weakness. Objective Vitals Vital Signs Date Time Temp Pulse Resp B/P (MAP) Pulse Ox O2 Delivery O2 Flow Rate FiO2 08/29/17 03:36 18 08/29/17 03:04 97.9 66 18 135/62 (86) 99 08/29/17 01:27 97.9 66 18 178/81 (113) 97 08/29/17 00:40 98.4 63 18 179/84 (115) 98 Room Air 08/29/17 00:40 08/28/17 15:47 21 Room Air 08/28/17 14:28 98.7 64 22 157/103 (121) 97 Result Diagram: 08/29/17 0351 08/29/17 0351 Imaging Last Impressions Head CT 08/28/17 0000 Signed Impressions: Service Date/Time: Monday, August 28, 2017 17:46 - CONCLUSION: 1. Area of increased density in the right basal ganglia likely calcifications versus less likely petechial hemorrhage. 2. Nonspecific white matter changes. Je Nair MD Chest X-Ray 08/28/17 0000 Signed Impressions: Service Date/Time: Monday, August 28, 2017 16:21 - CONCLUSION: No acute disease. Juan M Roy MD Chest CT 08/28/17 0000 Signed Impressions: Service Date/Time: Monday, August 28, 2017 17:51 - CONCLUSION: 1. No acute thoracic process. Je Nair MD Cervical Spine CT 08/28/17 0000 Signed Impressions: Service Date/Time: Monday, August 28, 2017 17:48 - CONCLUSION: 1. Minimal anterolisthesis C3 on C4. 2. No fracture. Je Nair MD Abdomen/Pelvis CT 08/28/17 0000 Signed Impressions: Service Date/Time: Monday, August 28, 2017 17:51 - CONCLUSION: 1. Mild superior endplate compression fracture at L1 of indeterminate age. 2. No abdominal visceral injury. 3. Status post cholecystectomy. Je Nair MD Objective Remarks GENERAL: Well-developed well-nourished elderly female sitting up in bed. Awake and alert. SKIN: Cool and dry. HEAD: Atraumatic. Normocephalic. No temporal or scalp tenderness. No areas of ecchymoses or trauma. EYES: Pupils equal round and reactive. Extraocular motions intact. No scleral icterus. No injection or drainage. ENT: Nose without bleeding or purulent drainage. Airway patent. NECK: Trachea midline. CARDIOVASCULAR: Regular rate and rhythm without murmurs, gallops, or rubs. RESPIRATORY: Clear to auscultation. Breath sounds equal bilaterally. No wheezes , rales, or rhonchi. GASTROINTESTINAL: Abdomen soft, non-tender, nondistended. No hepato-splenomegaly , or palpable masses. No guarding. MUSCULOSKELETAL: Extremities without clubbing, cyanosis, or edema. No joint tenderness, effusion, or edema noted. No calf tenderness. NEUROLOGICAL: Awake and alert. Cranial nerves II through XII grossly intact. Motor and sensory grossly within normal limits. Five out of 5 muscle strength in all muscle groups. Normal speech. Medications and IVs Current Medications Medications (Trade) Dose Ordered Sig/Armani Route Start Time Stop Time Status Last Admin (NS Flush) 2 ml UNSCH PRN IV FLUSH 08/28/17 23:15 (NS Flush) 2 ml BID IV FLUSH 08/29/17 09:00 (Tylenol) 650 mg Q4H PRN PO 08/28/17 23:15 (Zofran Inj) 4 mg Q6H PRN IVP 08/28/17 23:15 08/29/17 03:29 (Narcan Inj) 0.4 mg UNSCH PRN IV PUSH 08/28/17 23:15 (Lilly-Colace) 1 tab BID PO 08/29/17 09:00 (Milk Of Magnesia Liq) 30 ml Q12H PRN PO 08/28/17 23:15 (Senokot) 17.2 mg Q12H PRN PO 08/28/17 23:15 (Dulcolax Supp) 10 mg DAILY PRN RECTAL 08/28/17 23:15 (Lactulose Liq) 30 ml DAILY PRN PO 08/28/17 23:15 (Morphine Inj) 2 mg Q3H PRN IV PUSH 08/28/17 23:15 08/29/17 03:31 (Norvasc) 5 mg DAILY PO 08/29/17 09:00 (Lipitor) 40 mg HS PO 08/29/17 21:00 (Imdur) 30 mg DAILY PO 08/29/17 09:00 (Synthroid) 75 mcg DAILY@0600 PO 08/29/17 06:00 08/29/17 06:25 (Lopressor) 25 mg BID PO 08/29/17 09:00 (Zoloft) 100 mg DAILY PO 08/29/17 09:00 A/P Assessment and Plan 77yo female s/p mechanical fall resulting in closed head injury. 1. Concern for petechial hemorrhage on head CT Complaining of severe headache and left eye vision changes Consult neurology, appreciate recommendations Repeat head CT positive for hemorrhage Monitor neurologic status Neuro checks every 4 hours 2. L1 fracture Age-indeterminate Neurosurgery consulted, recommend conservative treatment. Patient may mobilize out of bed without a brace, restrict bending/lifting. Repeat x-ray of the lumbar spine in 10-14 days. PT eval/tx 3. Pain status post fall Morphine when necessary 4. CAD/hypertension/hyperlipidemia BP controlled Continue home medications 5. Hypothyroidism/depression Continue sertraline and Synthroid 6. Hypokalemia Resolved status post by mouth repletion FEN Heart healthy diet Electrolytes: As above Holding pharmacologic anticoagulation for head bleed Discharge Planning Pending clinical course, neurology and neurosurgery clearance Attending Statement The exam, history, and the medical decision-making described in the above note were completed with the assistance of the mid-level provider. I reviewed and agree with the findings presented. patient is a 77 y/o female with fall and right basal ganglia hemorrhage. will continue with neuro-checks. neurology and PT consulted. rest of assessment and plan as noted above. Merline Bullock Aug 29, 2017 09:09 Albino Lombardi MD Aug 29, 2017 11:35
--- NOTE | 2017-08-29 09:16 | RADRPT ---
EXAM DATE/TIME: 08/29/2017 08:51 [facility] COMPARISON: CT BRAIN W/O CONTRAST, August 28, 2017, 17:46. INDICATIONS : Follow up on hemorrhage RADIATION DOSE: 33.11 CTDIvol (mGy) MEDICAL HISTORY : Seizures. Hypertension. SURGICAL HISTORY : CABG ENCOUNTER: Initial ACUITY: 1 day PAIN SCALE: 6/10 LOCATION: cranial TECHNIQUE: Multiple contiguous axial images were obtained of the head. Using automated exposure control and adj ustment of the mA and/or kV according to patient size, radiation dose was kept as low as reasonably a chievable to obtain optimal diagnostic quality images. DICOM format image data is available electro nically for review and comparison. FINDINGS: Small focal area of increased density basalganglia right side continued internal capsule, probably sm all resolving lacunar type hemorrhage. The left hemisphere unremarkable Ventricle size appropriate Posterior fossa normal. CONCLUSION: Less than 1 cm apparent right basalganglia hemorrhage genu internal capsule. Minimal improvement. Chris Richard MD FACR on August 29, 2017 at 9:12 Board Certified Radiologist. This report was verified electronically.
[2017-08-29] MEDS: METOPROLOL TARTRATE 25 MG TAB PO SCH ×2 (09:25→20:10)
[2017-08-29] MEDS: SERTRALINE HCL 100 MG TAB PO SCH (09:25)
[2017-08-29] MEDS: ISOSORBIDE MONONITRATE 30 MG TAB PO SCH (09:25)
[2017-08-29] MEDS: DOCUSATE SODIUM 50 MG/SENNA 8.6 MG TAB PO SCH ×2 (09:25→20:05)
[2017-08-29] MEDS: amLODIPine BESYLATE 5 MG TAB PO SCH (09:26)
[2017-08-29 12:16] VITALS: BP 108/53; PULSE 54; RESP 18; TEMP 98; O2SAT 97
[2017-08-29] MEDS ORDERED: ACETAMINOPHEN/HYDROcodone 325 MG/5 MG TAB PO PRN (16:00)
[2017-08-29 16:32] VITALS: BP_SYST 115; BP_SYST 90; BP_SYST 94; BP_DIAS 54; BP_DIAS 59; BP_DIAS 67; PULSE 56; RESP 18; TEMP 98; O2SAT 96
--- NOTE | 2017-08-29 16:49 | MB ---
cc: CRISELDA CANDELARIA DATE OF CONSULTATION: 08/29/2017 REASON FOR CONSULTATION: HISTORY OF PRESENT ILLNESS: The patient is a 77-year-old right-handed man with a history of hypertension, hypercholesterolemia, CABG x5 about five years ago, hypothyroidism. She does take a baby aspirin a day. Yesterday she was going into a store. She was looking at buying a motorcycle when she tripped over the small step-up going to the store. She remembers starting to fall. She is not sure if she remembers hitting the floor, but then she remembers waking up on the floor. Evidently she chipped her dentures. No incontinence. She has had overall global headache since that time, feels like she is a little bit blurry in the left vision, although she has had some difficulty with her vision, with a different prescription in the past. CT showed possible calcification of right basal ganglia unchanged from a repeat CT on this admission. REVIEW OF SYSTEMS: She denies any history of diabetes, A fib, Coumadin, renal, hepatic, pulmonary disease, lupus, ulcer, cancer, seizure, stroke. She has had a little bit of neck discomfort and some pain, she says running down her legs a bit, the back of her legs, some rib discomfort. No vertigo. SOCIAL HISTORY She is not a smoker or drinker, lives with a friend. FAMILY HISTORY: Negative for cancer, seizure, stroke. MEDICATIONS 1. Aspirin 81 milligrams. 2. Zoloft 100 a day. 3. Metoprolol. 4. Thyroid. 5. Isosorbide. 6. Atorvastatin. 7. Amlodipine 8. Xanax 0.25 p.r.n. ALLERGIES: NO KNOWN DRUG ALLERGIES. PHYSICAL EXAMINATION: VITAL SIGNS: Afebrile, 54 18, blood pressure 108/53 to 179/84. There were no carotid bruits. Heart: Regular rhythm. I did not detect a murmur. Neurologic: There was no left ocular bruit, or right ocular bruit. There was no rogers sign. Pupils are equal, visual seals full. Extraocular movements intact without nystagmus. Face symmetric with normal sensation. Tongue was midline. There was no biting on the tongue or lips, no blood there. Hearing was intact to finger rub bilaterally. There is no drift. She had normal strength in upper and lower extremities bilaterally including deltoid, triceps, biceps, finger extensors, FDI, APB, iliopsoas, hamstrings, tibialis anterior, gastrocs. DTRs are 1+ symmetric in the knee jerks, absent in the upper extremities. Toes are downgoing bilaterally. There is no ankle clonus. Tone was normal throughout. Vibratory sense and pinprick are intact throughout. She is not ataxic on [id number]. Visual acuity is 20/70 OS, and 20/40 OD, basically with and without her glasses for the most part, worse in the left eye. LABORATORY DATA CBC is normal. UA was negative. Basic metabolic profile was normal. Coags normal. CBC normal. IMAGING STUDIES: CT scan of brain as noted, looks probably more like calcification than infarct. Abdominal CT, L1 fracture. Cervical spine CT, minimal DJD, no fracture. Chest x-ray negative. Chest CT, no acute problem. IMPRESSION I thought overall she looked well neurologically. I suspect the decreased visual acuity in the left eye is old as she has had different prescriptions for both eyes. She did have a little bit of discomfort running down the leg, and at this point we will just check an MRI of her LS spine, and in addition, I have recommended MRI of the brain which I think unlikely is a hemorrhage, probably more of a calcification, but if those look okay, she can probably be discharged. I note neurosurgery has evaluated her also. Gait was normal with a negative Romberg. We will also just check a standing blood pressure on her before she goes also. MD KATIE Nichole/MAURILIO /3:12 PM /4:05 PM
[2017-08-29] MEDS: ACETAMINOPHEN/HYDROcodone 325 MG/10 MG TAB PO PRN (20:05)
[2017-08-29] MEDS ORDERED: GADODIAMIDE PF 287 MG/ML 5 ML VIAL (for RAD MRI) IVCONTRAST ONE (20:43)
[2017-08-29 20:50] VITALS: BP 118/67; PULSE 55; RESP 18; TEMP 98; O2SAT 97
[2017-08-29] MEDS ORDERED: ATORVASTATIN 40 MG TAB PO SCH (21:00)
--- NOTE | 2017-08-29 21:00 | HHI.NSPN ---
History Chief Complaint: no complaints Interval History 77-year-old female fell on 08/28/2017 without definite loss of consciousness. Initial emergency room workup included CT scan of the head with a increased attenuation within the right basal ganglia hemorrhage versus calcification, superior endplate fracture chronic versus acute, and C3 4 anterior listhesis probable degenerative and chronic. The patient ambulated approximately 60 feet in physical therapy on 08/29/2017 with some gait difficulty requiring contact guard assistance. Recommendations made for a platform cane as well as a front wheel walker with home physical therapy assessment. Patient has no complaint of significant headache or neck pain on 08/29/2017. Exam Results Vital Signs Date Time Temp Pulse Resp B/P (MAP) Pulse Ox O2 Delivery O2 Flow Rate FiO2 08/29/17 20:50 98.0 55 18 118/67 (84) 97 08/29/17 00:40 Room Air Physical Examination General: Appears comfortable. Sitting up in chair. [place] collar in place Respirations clear and regular Pulse regular Neck without significant tenderness Neurologic: Awake and alert Oriented X 3 Speech is clear Conversant and appropriate Follow simple commands well Answers questions appropriately Reasonable judgment and insight Recent and remote memory are intact No evidence of anxiety or depression Pupils are equal and reactive to accommodation. Extra-ocular movements, visual seals to confrontation, facial sensorimotor, tongue, palate, sternocleidomastoid testing, hearing to finger rub testing, and bilateral shoulder shrug are all intact. Sensation is intact to light touch in all extremities Strength normal major flexion and extension groups all extremities Esperanza's absent bilaterally No ankle clonus Plantar responses absent bilateral Fine motor movements intact upper extremities Lab, Micro, Other Results Last Impressions Head CT 08/29/17 0600 Signed Impressions: Service Date/Time: Tuesday, August 29, 2017 08:51 - CONCLUSION: Less than 1 cm apparent right basalganglia hemorrhage genu internal capsule. Minimal improvement. Chris Richard MD FACR Chest X-Ray 08/28/17 0000 Signed Impressions: Service Date/Time: Monday, August 28, 2017 16:21 - CONCLUSION: No acute disease. Juan M Roy MD Chest CT 08/28/17 0000 Signed Impressions: Service Date/Time: Monday, August 28, 2017 17:51 - CONCLUSION: 1. No acute thoracic process. Je Nair MD Cervical Spine CT 08/28/17 0000 Signed Impressions: Service Date/Time: Monday, August 28, 2017 17:48 - CONCLUSION: 1. Minimal anterolisthesis C3 on C4. 2. No fracture. Je Nair MD Abdomen/Pelvis CT 08/28/17 0000 Signed Impressions: Service Date/Time: Monday, August 28, 2017 17:51 - CONCLUSION: 1. Mild superior endplate compression fracture at L1 of indeterminate age. 2. No abdominal visceral injury. 3. Status post cholecystectomy. Je Nair MD Laboratory Tests Test 08/29/17 03:51 White Blood Count 6.4 TH/MM3 Red Blood Count 4.36 MIL/MM3 Hemoglobin 13.0 GM/DL Hematocrit 37.9 % Mean Corpuscular Volume 86.9 FL Mean Corpuscular Hemoglobin 29.8 PG Mean Corpuscular Hemoglobin Concent 34.3 % Red Cell Distribution Width 14.0 % Platelet Count 253 TH/MM3 Mean Platelet Volume 7.7 FL Neutrophils (%) (Auto) 58.9 % Lymphocytes (%) (Auto) 27.5 % Monocytes (%) (Auto) 8.7 % Eosinophils (%) (Auto) 4.4 % Basophils (%) (Auto) 0.5 % Neutrophils # (Auto) 3.8 TH/MM3 Lymphocytes # (Auto) 1.8 TH/MM3 Monocytes # (Auto) 0.6 TH/MM3 Eosinophils # (Auto) 0.3 TH/MM3 Basophils # (Auto) 0.0 TH/MM3 CBC Comment DIFF FINAL Differential Comment Blood Urea Nitrogen 14 MG/DL Creatinine 0.86 MG/DL Random Glucose 94 MG/DL Calcium Level 9.1 MG/DL Sodium Level 139 MEQ/L Potassium Level 4.2 MEQ/L Chloride Level 104 MEQ/L Carbon Dioxide Level 28.0 MEQ/L Anion Gap 7 MEQ/L Estimat Glomerular Filtration Rate 64 ML/MIN Medical Decision Making Impression and Plan Impression: 1. L1 superior endplate fracture chronic versus acute 2. Right basal ganglia increased attenuation. Stable on follow-up CT scan of . Calcification versus hemorrhage 3. C3 4 anterolisthesis chronic versus acute. No significant neck pain at this time Plan: Findings discussed with the patient MRI lumbar spine and brain requested per neurology. We will review when completed. We will go ahead with a cervical flexion extension x-ray to more thoroughly evaluate any cervical instability. Anticipate she will be able to discharge home on 08/30/2017 pending the above noted studies. Tamir Brunner MD Aug 29, 2017 21:00
--- NOTE | 2017-08-29 21:57 | RADRPT ---
EXAM DATE/TIME: 08/29/2017 20:12 [facility] COMPARISON: No previous studies available for comparison. INDICATIONS : Myelopathy. MEDICAL HISTORY : Seizures. Hypertension SURGICAL HISTORY : CABG ENCOUNTER: Initial ACUITY: 2 day PAIN SCORE: 0/10 LOCATION: lumbar TECHNIQUE: Multiplanar multisequence MRI of the lumbar spine was performed without contrast. FINDINGS: The most caudal appearing lumbar vertebra is numbered as L5. There is mild superimposed depression of T11 without any marrow edema chronic in nature and there is a Schmorl node formation involving the s uperior endplate of L1 also probably chronic as well although there is slight edema adjacent to the e ndplate may be subacute. There is nondescript edema involving the lower portion of L2 vertebrae possi sundeep due to subtle subacute compression. T12-L1: There is no evidence for any significant compromise to the thecal sac, or the exiting nerve roots. N o appreciable thecal sac stenosis is seen. The neural foramina and lateral recess appear patent bila terally. L1-L2: There is no evidence for any significant compromise to the thecal sac, or the exiting nerve roots. N o appreciable thecal sac stenosis is seen. The neural foramina and lateral recess appear patent bila terally. L2-L3: There is asymmetrical bulging disc towards the left with extension into the left neural foramen impin ging the exiting nerve root to a slight degree. No appreciable thecal sac stenosis is seen. L3-L4: Slight bulging disc and hypertrophic changes are seen with indentation on the thecal sac and no signi ficant compromise to the thecal sac or the exiting nerve roots. L4-L5: There is slight neural foramina compromise on the left due to asymmetrical bulging disc and hypertrop hic changes. Moderate overall thecal sac stenosis is seen due to bulging disc and hypertrophic change s. L5-S1: There is slight neural foramina compromise bilaterally due to bulging disc and hypertrophic changes. Slight degenerative changes are seen within the disc space and facets. Slight bulging disc and hypert rophic changes are seen with indentation on the thecal sac and no significant compromise to the theca l sac or the exiting nerve roots. CONCLUSION: 1. Moderate thecal sac stenosis L4-5. 2. Neural foramina compromise left L4-L5 and slight symmetrical buldging disc left L2-L3. 3. Possible subacute compression of L2 and there is Schmorl node formation involving superior endplat e of L1 may be subacute as well. Eusebio Newsome MD on August 29, 2017 at 21:50 Board Certified Radiologist. This report was verified electronically.
--- NOTE | 2017-08-29 21:59 | RADRPT ---
EXAM DATE/TIME: 08/29/2017 20:12 [facility] COMPARISON: No previous studies available for comparison. INDICATIONS : CVA. CONTRAST: 17 cc Omniscan (gadodiamide) IV MEDICAL HISTORY : Seizures. Hypertension SURGICAL HISTORY : CABG ENCOUNTER: Subsequent ACUITY: 2 day PAIN SCORE: LOCATION: cranial TECHNIQUE: Multiplanar, multisequence MRI of the brain was performed both prior to and following the administrat ion of paramagnetic contrast. FINDINGS: There is no evidence for intracranial hemorrhage, mass effect, mass lesions, edema, or extra-axial fl uid collections. There are no signs of acute infarction for technique. The diffusion portion, and po stcontrast portion are unremarkable. Slight degree of brain atrophy is seen. Slight to moderate periv entricular white matter changes are seen nonspecific mostly consistent with chronic small vessel isch emic changes. CONCLUSION: Chronic atrophic and small vessel ischemic changes without any evidence for acute hemorrhage or mass effect. Eusebio Newsome MD on August 29, 2017 at 21:55 Board Certified Radiologist. This report was verified electronically.
[2017-08-30 01:24] VITALS: BP_SYST 103; BP_SYST 127; BP_SYST 128; BP_DIAS 58; BP_DIAS 65; PULSE 57; RESP 18; TEMP 98; O2SAT 98
[2017-08-30] MEDS: ACETAMINOPHEN/HYDROcodone 325 MG/10 MG TAB PO PRN ×2 (03:06→11:38)
[2017-08-30] MEDS ORDERED: MORPHINE SULFATE 2 MG/ML INJ IV PUSH PRN (04:00)
[2017-08-30] MEDS ORDERED: ALPRAZolam 0.25 MG TAB PO PRN (04:00)
[2017-08-30] MEDS: LEVOTHYROXINE SODIUM 75 MCG TAB PO SCH (04:03)
[2017-08-30 05:14] VITALS: BP 145/84; PULSE 60; RESP 18; TEMP 97.3; O2SAT 95
--- NOTE | 2017-08-30 06:56 | HHI.PR ---
Objective Vital Signs Date Time Temp Pulse Resp B/P (MAP) Pulse Ox O2 Delivery O2 Flow Rate FiO2 08/30/17 05:14 97.3 60 18 145/84 (104) 95 08/30/17 01:24 98.0 57 18 128/58 (81) 98 127/65 (85) 103/65 (78) 08/29/17 20:50 98.0 55 18 118/67 (84) 97 08/29/17 16:32 98.0 56 18 115/67 (83) 96 90/54 (66) 94/59 (71) 08/29/17 12:16 98.0 54 18 108/53 (71) 97 08/29/17 09:06 20 I/O 08/29/17 08/29/17 08/29/17 08/30/17 08/30/17 08/30/17 07:00 15:00 23:00 07:00 15:00 23:00 Intake Total 120 ml Balance 120 ml Intake Oral 120 ml # Voids 1 Result Diagram: 08/29/17 0351 08/29/17 0351 Objective Remarks vff os knutson a little worse in hard collar moves all ok Assessment and Plan Assessment and Plan imp mri two old areas cbllm look somewhat odd bilat encephalomalacia so will order echo and holter no acute cva hard to say if r bg region is ca or blood will repeat ct 6 weeks o/p ls spine l4-5 and l5s1 spinal stenosis moderate standing bp 95/59 nusu has in hard collar and ordered flex ext c spine film not done? neurowise can dc if standing bp ok and echo ok and holter on tylenol for knutson will Darrin Parish MD Aug 30, 2017 06:56
[2017-08-30 08:00] VITALS: BP 146/82; PULSE 59; RESP 18; TEMP 98.1; O2SAT 97
[2017-08-30] MEDS: SERTRALINE HCL 100 MG TAB PO SCH (08:42)
[2017-08-30] MEDS: DOCUSATE SODIUM 50 MG/SENNA 8.6 MG TAB PO SCH (08:42)
[2017-08-30] MEDS: amLODIPine BESYLATE 5 MG TAB PO SCH (08:42)
[2017-08-30] MEDS: METOPROLOL TARTRATE 25 MG TAB PO SCH (08:42)
[2017-08-30] MEDS: ISOSORBIDE MONONITRATE 30 MG TAB PO SCH (08:42)
[2017-08-30] MEDS: SODIUM CHLORIDE 0.9% FLUSH 10 ML FLUSH IV FLUSH SCH (08:43)
--- NOTE | 2017-08-30 09:19 | RADRPT ---
EXAM DATE/TIME: 08/30/2017 08:03 [facility] COMPARISON: No previous studies available for comparison. INDICATIONS : Fall pain cervical spine. MEDICAL HISTORY : None. SURGICAL HISTORY : None. ENCOUNTER: Initial ACUITY: 3 days PAIN SCORE: 5/10 LOCATION: Cervical spine FINDINGS: No appreciable subluxation or soft tissue swelling is seen. Degenerative spondylosis is present at C4 -5 C5-6 and C6-7 and to a moderate to severe degree The neural foramina are patent bilaterally. The flexion and extension views do not demonstrate any significant laxity, however there is limited mobil ity. CONCLUSION: Degenerative spondylosis with limited mobility and no significant subluxation or laxity. Eusebio Newsome MD on August 30, 2017 at 9:13 Board Certified Radiologist. This report was verified electronically.
[2017-08-30 12:00] VITALS: BP 110/59; PULSE 55; RESP 18; TEMP 98.1; O2SAT 95
[2017-08-30 12:01] VITALS: BP 104/58
[2017-08-30 12:03] VITALS: BP 97/54
--- NOTE | 2017-08-30 14:59 | HHI.PR ---
Subjective Remarks Seen earlier today In bed eating breakfast says she has some neck pain. Breathing well. No n/v/d/ c. Has headache radiating to the neck. Left eye vision improved. No fever or chills.No n/v/d/c. Objective Vitals Vital Signs Date Time Temp Pulse Resp B/P (MAP) Pulse Ox O2 Delivery O2 Flow Rate FiO2 08/30/17 12:03 97/54 (68) 08/30/17 12:01 104/58 (73) 08/30/17 12:00 98.1 55 18 110/59 (76) 95 08/30/17 08:00 98.1 59 18 146/82 (103) 97 08/30/17 05:14 97.3 60 18 145/84 (104) 95 08/30/17 01:24 98.0 57 18 128/58 (81) 98 127/65 (85) 103/65 (78) 08/29/17 20:50 98.0 55 18 118/67 (84) 97 08/29/17 16:32 98.0 56 18 115/67 (83) 96 90/54 (66) 94/59 (71) I/O 08/29/17 08/29/17 08/29/17 08/30/17 08/30/17 08/30/17 07:00 15:00 23:00 07:00 15:00 23:00 Intake Total 120 ml Balance 120 ml Intake Oral 120 ml # Voids 1 Result Diagram: 08/29/17 0351 08/29/17 0351 Imaging Last Impressions Cervical Spine X-Ray 08/30/17 0000 Signed Impressions: Service Date/Time: August 08:03 - CONCLUSION: Degenerative spondylosis with limited mobility and no significant subluxation or laxity. Euseboi Newsome MD Lumbar Spine MRI 08/29/17 1528 Signed Impressions: Service Date/Time: Tuesday, August 29, 2017 20:12 - CONCLUSION: 1. Moderate thecal sac stenosis L4-5. 2. Neural foramina compromise left L4-L5 and slight symmetrical buldging disc left L2-L3. 3. Possible subacute compression of L2 and there is Schmorl node formation involving superior endplate of L1 may be subacute as well. Eusebio Newsome MD Brain MRI 08/29/17 1528 Signed Impressions: Service Date/Time: Tuesday, August 29, 2017 20:12 - CONCLUSION: Chronic atrophic and small vessel ischemic changes without any evidence for acute hemorrhage or mass effect. Eusebio Newsome MD Head CT 08/29/17 0600 Signed Impressions: Service Date/Time: Tuesday, August 29, 2017 08:51 - CONCLUSION: Less than 1 cm apparent right basalganglia hemorrhage genu internal capsule. Minimal improvement. Chris Richard MD FACR Chest X-Ray 08/28/17 0000 Signed Impressions: Service Date/Time: Monday, August 28, 2017 16:21 - CONCLUSION: No acute disease. Juan M Roy MD Chest CT 08/28/17 0000 Signed Impressions: Service Date/Time: Monday, August 28, 2017 17:51 - CONCLUSION: 1. No acute thoracic process. Je Nair MD Cervical Spine CT 08/28/17 0000 Signed Impressions: Service Date/Time: Monday, August 28, 2017 17:48 - CONCLUSION: 1. Minimal anterolisthesis C3 on C4. 2. No fracture. Je Nair MD Abdomen/Pelvis CT 08/28/17 0000 Signed Impressions: Service Date/Time: Monday, August 28, 2017 17:51 - CONCLUSION: 1. Mild superior endplate compression fracture at L1 of indeterminate age. 2. No abdominal visceral injury. 3. Status post cholecystectomy. Je Nair MD Objective Remarks GENERAL: Well-developed well-nourished elderly female sitting up in bed. Awake and alert. Neck collar in place CARDIOVASCULAR: Regular rate and rhythm without murmurs, gallops, or rubs. RESPIRATORY: Clear to auscultation. Breath sounds equal bilaterally. No wheezes , rales, or rhonchi. GASTROINTESTINAL: Abdomen soft, non-tender, nondistended. No hepato-splenomegaly , or palpable masses. No guarding. MUSCULOSKELETAL: Necl muscle spasm with on palpation on the left side. Extremities without clubbing, cyanosis, or edema. No joint tenderness, effusion , or edema noted. No calf tenderness. NEUROLOGICAL: Awake and alert. Cranial nerves II through XII grossly intact. Motor and sensory grossly within normal limits. Five out of 5 muscle strength in all muscle groups. Normal speech. A/P Assessment and Plan 77yo female s/p mechanical fall resulting in closed head injury. Concern for petechial hemorrhage on head CT Complaining of severe headache and left eye vision changes Consult neurology, appreciate recommendations Repeat head CT positive for hemorrhage Monitor neurologic status Neuro checks every 4 hours L1 fracture Age-indeterminate Neurosurgery consulted, recommend conservative treatment. Patient may mobilize out of bed without a brace, restrict bending/lifting. Repeat x-ray of the lumbar spine in 10-14 days. PT eval/tx Pain status post fall Muscle spasm Morphine when necessary Flexeril prn CAD/hypertension/hyperlipidemia BP controlled Continue home medications Hypothyroidism/depression Continue sertraline and Synthroid Hypokalemia Replace, monitor FEN Holding pharmacologic anticoagulation for head bleed Discharge Planning Pending clinical course, neurology and neurosurgery clearance Discussed with the patient, nurse Alejandra Alvarez MD Aug 30, 2017 14:59
[2017-08-30] MEDS ORDERED: CYCLOBENZAPRINE HCL 10 MG TAB PO PRN (15:00)
[2017-08-30] MEDS ORDERED: CYCLOBENZAPRINE HCL 10 MG TAB PO ONE (15:00)
[2017-08-30] MEDS ORDERED: PILL SPLITTER OTHER PRN (15:15)
[2017-08-30] MEDS ORDERED: CYCL10TA PO (17:36)
[2017-08-30] MEDS ORDERED: NORC5TAB PO (17:36)
[2017-08-30] MEDS ORDERED: PERI PO (17:36)
--- NOTE | 2017-08-30 17:37 | HHI.FF ---
Face to Face Verification Diagnosis: (1) Head injury (2) Fall (3) CAD (coronary artery disease) (4) Chest pain (5) Hypertension (6) Hypothyroidism Physical Therapy Order: Evaluate and Treat Home Health Nursing Order: Medical education Signs/symptoms of disease process Medication education-adverse effect Nursing assessment with vital signs I have seen patient Jessie Duval on 08/30/17. My clinical findings support the need for the requested home health care services because: Ltd mobility - disease progression I certify that my clinical findings support that this patient is homebound because: Post-op weakness Unsteady gait/balance Alejandra Alvarez MD Aug 30, 2017 17:37
[2017-08-30] MEDS ORDERED: GETGO ROLLING W1 MI1 (17:39)
--- NOTE | 2017-08-30 17:40 | HHI.DS ---
Discharge Summary Admission Date Aug 29, 2017 at 11:24 Discharge Date: Aug 30, 2017 Admitting Diagnosis Head Injury (1) CAD (coronary artery disease) ICD Code: I25.10 - CAD (coronary artery disease) Status: Acute (2) Chest pain ICD Code: R07.9 - Chest pain Status: Acute (3) Hypertension ICD Code: I10 - Hypertension Status: Acute (4) Hypothyroidism ICD Code: E03.9 - Hypothyroidism Status: Acute (5) Hx of CABG ICD Code: Z95.1 - Hx of CABG Status: Acute Procedures none Brief History - From Admission 87-year-old female with a past medical history significant for CAD status post CABG, hypertension, hyperlipidemia, depression and hypothyroidism presents to the emergency department after suffering a fall. The patient reports she was in a cycle shop when she tripped over a door ledge and fell forward. She hit the ground with such force that she broke her bottom denture. She is unsure if she sustained any loss of consciousness. She currently reports pain all over her whole body including her lower back and her hips. She has had multiple episodes of emesis that began approximately one hour after her fall. Chest x- ray, chest CT and cervical spine CT all without acute process. CT of the abdomen and pelvis significant for a mild superior endplate compression fracture at L1 of indeterminate age. Head CT showed an area of increased density in the right basal ganglia likely calcifications versus petechial hemorrhage. Patient denies headache. Alert and oriented 4. CBC/BMP: 08/29/17 0351 08/29/17 0351 Significant Findings Laboratory Tests Test 08/28/17 16:35 08/29/17 03:51 Potassium Level 3.1 MEQ/L (3.5-5.1) Estimat Glomerular Filtration Rate 58 ML/MIN (>89) 64 ML/MIN (>89) Monocytes (%) (Auto) 8.7 % (0.0-8.0) Eosinophils (%) (Auto) 4.4 % (0.0-4.0) Imaging Last Impressions Cervical Spine X-Ray 08/30/17 0000 Signed Impressions: Service Date/Time: August 08:03 - CONCLUSION: Degenerative spondylosis with limited mobility and no significant subluxation or laxity. Eusebio Newsome MD Lumbar Spine MRI 08/29/17 1528 Signed Impressions: Service Date/Time: Tuesday, August 29, 2017 20:12 - CONCLUSION: 1. Moderate thecal sac stenosis L4-5. 2. Neural foramina compromise left L4-L5 and slight symmetrical buldging disc left L2-L3. 3. Possible subacute compression of L2 and there is Schmorl node formation involving superior endplate of L1 may be subacute as well. Eusebio Newsome MD Brain MRI 08/29/17 1528 Signed Impressions: Service Date/Time: Tuesday, August 29, 2017 20:12 - CONCLUSION: Chronic atrophic and small vessel ischemic changes without any evidence for acute hemorrhage or mass effect. Eusebio Newsome MD Head CT 08/29/17 0600 Signed Impressions: Service Date/Time: Tuesday, August 29, 2017 08:51 - CONCLUSION: Less than 1 cm apparent right basalganglia hemorrhage genu internal capsule. Minimal improvement. Chris Richard MD FACR Chest X-Ray 08/28/17 0000 Signed Impressions: Service Date/Time: Monday, August 28, 2017 16:21 - CONCLUSION: No acute disease. Juan M Roy MD Chest CT 08/28/17 0000 Signed Impressions: Service Date/Time: Monday, August 28, 2017 17:51 - CONCLUSION: 1. No acute thoracic process. Je Nair MD Cervical Spine CT 08/28/17 0000 Signed Impressions: Service Date/Time: Monday, August 28, 2017 17:48 - CONCLUSION: 1. Minimal anterolisthesis C3 on C4. 2. No fracture. Je Nair MD Abdomen/Pelvis CT 08/28/17 0000 Signed Impressions: Service Date/Time: Monday, August 28, 2017 17:51 - CONCLUSION: 1. Mild superior endplate compression fracture at L1 of indeterminate age. 2. No abdominal visceral injury. 3. Status post cholecystectomy. Je Nair MD PE at Discharge GENERAL: Well-developed well-nourished elderly female sitting up in bed. Awake and alert. Neck collar in place CARDIOVASCULAR: Regular rate and rhythm without murmurs, gallops, or rubs. RESPIRATORY: Clear to auscultation. Breath sounds equal bilaterally. No wheezes , rales, or rhonchi. GASTROINTESTINAL: Abdomen soft, non-tender, nondistended. No hepato-splenomegaly , or palpable masses. No guarding. MUSCULOSKELETAL: Necl muscle spasm with on palpation on the left side. Extremities without clubbing, cyanosis, or edema. No joint tenderness, effusion , or edema noted. No calf tenderness. NEUROLOGICAL: Awake and alert. Cranial nerves II through XII grossly intact. Motor and sensory grossly within normal limits. Five out of 5 muscle strength in all muscle groups. Normal speech. Hospital Course 77yo female s/p mechanical fall resulting in closed head injury. Concern for petechial hemorrhage on head CT Complaining of severe headache and left eye vision changes Consult neurology, appreciate recommendations Repeat head CT positive for hemorrhage Monitor neurologic status Neuro checks every 4 hours Holter monitor ECHO ordered by neurology Dr Parish Per Dr Parish neuro michel can dc if standing bp ok and echo ok and holter on Patient did not have ECHO done and she left AMA L1 fracture Age-indeterminate Neurosurgery consulted, recommend conservative treatment. Patient may mobilize out of bed without a brace, restrict bending/lifting. Repeat x-ray of the lumbar spine in 10-14 days. PT eval/tx Pain status post fall Muscle spasm Morphine when necessary Flexeril prn CAD/hypertension/hyperlipidemia BP controlled Continue home medications Hypothyroidism/depression Continue sertraline and Synthroid Hypokalemia Replace, monitor FEN Holding pharmacologic anticoagulation for head bleed Discharge Planning Pending clinical course, neurology Cleared by neurosurgery for DC Not cleared for Dc by neuro unless echo done Patient did not have ECHO done and she left AMA Pt Condition on Discharge: Stable Discharge Disposition: Disch w/ Home Health Serv (left against medical advice) Discharge Time: > 30 minutes Discharge Instructions DIET: Follow Instructions for: Heart Healthy Diet Activities you can perform: Regular-No Restrictions Follow up Referrals: Neurosurgery - 1 Week PCP Follow-up - 2-3 Days New Medications: Hydrocodone-Acetaminophen (Smyer) 5 Mg-325 Mg Tab 1 TAB PO Q6H PRN for PAIN, #30 TAB 0 Refills Walker Rolling/GetGo (Walker Rolling/GetGo) 1 Mis Mis EA .ROUTE DIRECTED, #1 Cyclobenzaprine (Flexeril) 10 Mg Tab 5 MG PO Q8H PRN for muscle spasm , #20 TAB Sennosides-Docusate Sodium (Gnp Senna Plus 8.6-50 mg) 8.6 Mg-50 Mg Tab 1 TAB PO BID for Constipation, #60 TAB Continued Medications: Alprazolam (Alprazolam) 0.25 Mg Tab 0.25 MG PO Q8H PRN for ANXIETY, TAB 0 Refills Amlodipine (Amlodipine) 5 Mg Tab 5 MG PO DAILY for Blood Pressure Management, #30 TAB 0 Refills Aspirin (Aspirin Low Dose) 81 Mg Chew 81 MG CHEW DAILY, TAB 0 Refills Atorvastatin (Atorvastatin) 40 Mg Tab 40 MG PO HS for Cholesterol Management, #30 TAB 0 Refills Isosorbide Mononitrate ER (Isosorbide Mononitrate ER) 30 Mg Milagros 30 MG PO DAILY for Prevent Chest Pain, #30 TAB 0 Refills Levothyroxine (Levothyroxine) 75 Mcg Tab 75 MCG PO DAILY for Thyroid, #30 TAB 0 Refills Metoprolol Tartrate (Metoprolol Tartrate) 25 Mg Tab 25 MG PO BID, #60 TAB 0 Refills Sertraline (Sertraline) 100 Mg Tab 100 MG PO DAILY, #30 TAB 0 Refills Alejandra Alvarez MD Aug 30, 2017 17:40
--- NOTE | 2017-08-30 18:44 | HHI.NSPN ---
History Chief Complaint: no complaints Interval History 77-year-old female fell on 08/28/2017 without definite loss of consciousness. Initial emergency room workup included CT scan of the head with a increased attenuation within the right basal ganglia hemorrhage versus calcification, superior endplate fracture chronic versus acute, and C3 4 anterior listhesis probable degenerative and chronic. The patient ambulated approximately 60 feet in physical therapy on 08/29/2017 with some gait difficulty requiring contact guard assistance. Recommendations made for a platform cane as well as a front wheel walker with home physical therapy assessment. Patient has no complaint of significant headache or neck pain on 08/29/2017. 08/30/2017: Patient without specific complaint. Generalized aching. Exam Results Vital Signs Date Time Temp Pulse Resp B/P (MAP) Pulse Ox O2 Delivery O2 Flow Rate FiO2 08/30/17 12:03 97/54 (68) 08/30/17 12:00 98.1 55 18 95 08/29/17 00:40 Room Air Intake and Output 08/30/17 08/30/17 08/31/17 08:00 16:00 00:00 Intake Total 120 ml Balance 120 ml Physical Examination General: Appears comfortable. Lying down in bed. [place] collar in place Respirations clear and regular Pulse regular Neck without significant tenderness Neurologic: Awake and alert Oriented X 3 Speech is clear Conversant and appropriate Follow simple commands well Answers questions appropriately Reasonable judgment and insight Recent and remote memory are intact No evidence of anxiety or depression Pupils are equal and reactive to accommodation. Extra-ocular movements, visual seals to confrontation, facial sensorimotor, tongue, palate, sternocleidomastoid testing, hearing to finger rub testing, and bilateral shoulder shrug are all intact. Sensation is intact to light touch in all extremities Strength normal major flexion and extension groups all extremities Lab, Micro, Other Results 08/29/2017 MRI of the brain, and lumbar spine images have been reviewed by the undersigned. No definite intracranial hemorrhage or contusion or significant edema or mass effect. On MRI lumbar spine, there is slight subtle increased signal intensity in the anterior inferior L2 vertebral body suggestive of bone marrow contusion but no definite acute compression fracture or loss of height or retropulsion. There is moderate bilateral L4 5 and left L5-S1 lateral recess stenosis with possible nerve root impingement. Cervical Spine X-Ray 08/30/17 0000 Signed Impressions: Service Date/Time: August 08:03 - CONCLUSION: Degenerative spondylosis with limited mobility and no significant subluxation or laxity. Eusebio Newsome MD Lumbar Spine MRI 08/29/17 1528 Signed Impressions: Service Date/Time: Tuesday, August 29, 2017 20:12 - CONCLUSION: 1. Moderate thecal sac stenosis L4-5. 2. Neural foramina compromise left L4-L5 and slight symmetrical buldging disc left L2-L3. 3. Possible subacute compression of L2 and there is Schmorl node formation involving superior endplate of L1 may be subacute as well. Eusebio Newsome MD Brain MRI 08/29/17 1528 Signed Impressions: Service Date/Time: Tuesday, August 29, 2017 20:12 - CONCLUSION: Chronic atrophic and small vessel ischemic changes without any evidence for acute hemorrhage or mass effect. Eusebio Newsome MD Head CT 08/29/17 0600 Signed Impressions: Service Date/Time: Tuesday, August 29, 2017 08:51 - CONCLUSION: Less than 1 cm apparent right basalganglia hemorrhage genu internal capsule. Minimal improvement. Chris Richard MD FACR Medical Decision Making Impression and Plan Impression: 1. L1 superior endplate fracture-chronic on MRI 2. Right basal ganglia increased attenuation. Stable on follow-up CT scan of . Likely area of slight calcification based on MRI without definite hemorrhage or contusion. 3. C3 4 anterolisthesis. No ongoing neck pain. This appears chronic based on cervical flexion and extension x-rays of 08/30/2017 which do not reveal any active subluxation with flexion and extension. This appears to be a stable chronic defect. 4. Possible mild L2 vertebral body contusion based on MRI without definite acute compression fracture. Plan: Findings discussed with the patient Her neurologic function is stable. Imaging findings as noted above in the impression. No significant acute injury which requires further neurosurgical attention at this point. She is stable for discharge home Signs and symptoms to watch for fully discussed She will follow up with neurology as needed Tamir Brunner MD Aug 30, 2017 18:44
--- NOTE | 2017-09-02 14:31 | HM ---
Date Performed: 08/30/2017 Time Performed: 11:49:00 HOOKUP DATE: 08/30/17 11:49:00 AM [facility] ANALYSIS START TIME: 08/30/2017 11:54:00 AM ANALYSIS END TIME: 08/31/2017 11:58:00 AM PATIENT AGE: 77 PATIENT HEIGHT: 69 PATIENT WEIGHT: 187 DRUG LIST: ROOM # [id number] PATIENT DIAGNOSIS: HEAD INJURY TEST NARRATIVE: The patient's average heart rate was 60 BPM. No episodes of tachycardia wer e noted. Heart rates less than 50 BPM were noted 5% of the time. No pauses exceeding 2.0 seconds were noted. 33 ventricular ectopics, which represented < 1% of the total beat count, were noted. The highest ventricular ectopic frequency occurred from 12:00 PM to 01:00 PM [facility]. During this time 10 VE(s) occurred. Ventricular ectopics were observed as 29 isolated beat(s) and as 2 couplet(s). No runs were noted. 139 supraventricular ectopics, which represented < 1% of the total beat count , were noted. The highest supraventricular ectopic frequency occurred from 03:00 AM to 04:00 AM Fri. During this time 15 SVE(s) occurred. No episodes of ST depression (defined as -1.0 mm or more) were noted in channel 1. No episodes of ST depression (defined as -1.0 mm or more) were noted in say nnel 2. No episodes of ST depression (defined as -1.0 mm or more) were noted in channel 3. no diary returned TEST INTERPRETATION: There are two episodes, where there appears to be a couplet of wide complex beats followed by four clear PACs. The first two beats may be abberant conduction of supraventricula r rhythm. There are other runs of three to five PACs in a row. No episodes of atrial fibrillation wer e seen. There were ventricular ectopies present. Otherwise, no heart block was seen. No patient diary returned. Overall, this patient has some mild complexity of atrial arrhythmia with most likely aberr ant conduction of the the first two beats with a six beat run of PACs followed by Sinus rhythm resuming, and this happens twice. There are other rare episodes of several PACs in a row. No marked bradycardia episodes were present. No tachycardia episodes, otherwise, were present. Signed by : Jimmy Chirinos
== END 2017-08-30 19:47 | disposition left against medical advice (07) | DRG 86 ==
LOC: NEPD 14:25 → NEDA 23:08 → NEPHCDU 08-29 00:48 → OBSVTOIN 08-29 11:24 → N05B 08-29 17:57
PROVIDERS: ADMIT Hospitalist; ATTEND Hospitalist
DX: S06.340A Traumatic hemorrhage of right cerebrum without loss of consciousness, initial encounter (principal); M48.56XA Collapsed vertebra, not elsewhere classified, lumbar region, initial encounter for fracture; G93.89 Other specified disorders of brain; G40.909 Epilepsy, unspecified, not intractable, without status epilepticus; E03.9 Hypothyroidism, unspecified; E78.5 Hyperlipidemia, unspecified; I10 Essential (primary) hypertension; I25.10 Atherosclerotic heart disease of native coronary artery without angina pectoris; E87.6 Hypokalemia; R11.10 Vomiting, unspecified; M43.12 Spondylolisthesis, cervical region; M53.2X2 Spinal instabilities, cervical region; M48.061 Spinal stenosis, lumbar region without neurogenic claudication; S30.0XXA Contusion of lower back and pelvis, initial encounter; M62.838 Other muscle spasm; E78.00 Pure hypercholesterolemia, unspecified; F32.9 Major depressive disorder, single episode, unspecified; W01.0XXA Fall on same level from slipping, tripping and stumbling without subsequent striking against object, initial encounter; Z79.82 Long term (current) use of aspirin; Z95.1 Presence of aortocoronary bypass graft
CPT/HCPCS: 70450; 70553; 71045; 71260; 72040; 72125; 72148; 74177; 80048; 85025; 93225; 93226; 96374; 96376; A9579; G0378; G8987-GP; G8988-GP; J2270; J2405; L0150; Q9967